=== PATIENT | female | born 2000 | race Two or more races ===

== ENCOUNTER 2020-01-14 12:27 | Emergency (ER) | payer MEDICAID ==
[~2020-01-14] VITALS: Ht 160 cm; Wt 55.2 kg
[~2020-01-14 12:27] MED LIST: IBUP-2029 MT; SULF1TAB48 MT
[2020-01-14 13:15] VITALS: BP 110/59
== END 2020-01-14 14:22 | disposition left against medical advice (07) ==
LOC: ER 12:27
DX: Z53.21 Procedure and treatment not carried out due to patient leaving prior to being seen by health care provider (principal)